=== PATIENT | male | born 1990 | race African-American/Black ===

== ENCOUNTER 2019-11-01 01:03 | Emergency (ER) | payer OTHER ==
[~2019-11-01] VITALS: Ht 170.2 cm; Wt 81.7 kg
[2019-11-01 02:03] LABS: ABSOLUTE BASOPHILS 0.1 thou/uL (0.0-0.2); ABSOLUTE EOSINOPHILS 0.1 thou/uL (0.0-0.7); ABSOLUTE LYMPHOCYTES 1.9 thou/uL (0.8-5.3); ABSOLUTE MONOCYTES 0.6 thou/uL (0.0-1.2); ABSOLUTE NEUTROPHILS 7.6 thou/uL (1.6-8.1); EOSINOPHILS 1.1 %; HEMATOCRIT 44.1 % (42.0-52.0); HEMOGLOBIN 15.7 gm/dL (14.0-18.0); LYMPHOCYTES 18.5 %; MCH 33.3 pg (26.0-34.0); MCHC 35.7 g/dL (28.0-37.0); MCV 93.4 fL (80.0-100.0); MONOCYTES 5.9 %; NUCLEATED RBCS 0 /100WBC; PLATELET COUNT* 236 thou/uL (150-400); POLYS 73.5 %; RBC 4.72 mil/uL (4.50-6.00); RDW-CV 12.6 % (10.5-14.5); WBC 10.4 thou/uL (4.0-11.0)
[2019-11-01 02:13] LABS: CALCIUM 9.7 mg/dL (8.5-10.1); CREATININE 1.5 mg/dL (0.6-1.3)
[2019-11-01 02:17] LABS: ALBUMIN 4.3 g/dL (3.4-5.0); TOTAL BILIRUBIN 1.1 mg/dL (<0.1-1.0); TOTAL PROTEIN 8.5 g/dL (6.4-8.2)
[2019-11-01 02:42] LABS: URINE BILIRUBIN NEGATIVE (Negative); URINE BLOOD NEGATIVE (Negative); URINE CLARITY CLEAR; URINE COLOR YELLOW; URINE GLUCOSE-RANDOM NEGATIVE (Negative); URINE KETONES TRACE (Negative); URINE LEUKOCYTES-REFLEX NEGATIVE (Negative); URINE NITRITE-REFLEX NEGATIVE (Negative); URINE PROTEIN TRACE (Negative); URINE SPECIFIC GRAVITY 1.015 (1.005-1.030); URINE UROBILINOGEN 0.2 E.U./dl (0.2-1.0)
[2019-11-01 02:51] LABS: AMP/METHAMP Negative (Negative); BARBITURATES Negative (Negative); BENZODIAZEPINES Negative (Negative); COCAINE Negative (Negative); METHADONE Negative (Negative); OPIATES Negative (Negative); PCP Negative (Negative); THC POSITIVE (Negative)
[2019-11-01] MEDS ORDERED: HYDROCODON-ACE1 EAC8 PO (04:07)
[2019-11-01 04:15] VITALS: BP 123/96
== END 2019-11-01 04:15 | disposition home or self-care (01) ==
LOC: M.ERS 01:03
PROVIDERS: Emergency Medicine
DX: R10.32 Left lower quadrant pain (principal); R11.2 Nausea with vomiting, unspecified; F12.90 Cannabis use, unspecified, uncomplicated